=== PATIENT | female | born 1990 | race Caucasian/White ===

== ENCOUNTER 2023-06-15 09:00 | Emergency (ER) | payer BC, SELFPAY ==
[2023-06-15 09:06] VITALS: BP 121/77
--- NOTE | 2023-06-15 09:40 | ED.GENMED ---
History of Present Illness
General
Chief Complaint: Problems
Source: patient
Exam Limitations: none
Time Seen by Provider: 06/15/23 09:39
Nursing documentation reviewed up to this point in time: agreed with
Travel History
Have you had any contact with someone who has COVID-19?: No
Do you have any symptoms of coronavirus? Fever > 100 degrees, chills, cough, shortness of breath, sore throat, loss of taste or smell, muscle aches, or headache?: No
History of Present Illness
History of Present Illness:
Patient is a 32-year-old female G1, P1/1 miscarriage presents to the ER for evaluation of vaginal bleeding. Patient reports she is approximately 6 weeks with estimated last menstrual period of May 02. She is due to see her CONSULTING INTERN for
the first appointment this Saturday. She started bleeding this morning. She reports she noticed blood dripping when she was urinating and when wiping, she does see small amount of clots/tissue. She has some mild lower abdominal cramping.
Review of Systems
Review of Systems
Allergies reviewed?: Yes
All Other Systems: ROS reviewed and negative except as documented in HPI and ROS
Constitutional: Reports no symptoms; Denies fever, fatigue or chills
Respiratory: Reports no symptoms
Cardiac: Reports no symptoms
ABD/GI: Reports abdominal pain (lower abd cramping ); Denies nausea or vomiting
: Reports other (vaginal bleeding/spotting with small clots )
Musculoskeletal: Reports no symptoms; Denies back pain
Skin: Reports no symptoms
Neurological: Reports no symptoms
Hematologic/Lymphatic: Reports no symptoms
Psychiatric: Reports no symptoms
Phy Exam
General Physical Exam
General Presentation: no apparent distress
General age: appears stated age
General Skin: warm and dry
General Habitus: normal
General Mental: alert
Gastrointestinal Exam
Gastrointestinal Exam: non tender and soft
Genitourinary Exam Female
Exam Female: other (Patient with small amount of brown discharge in vaginal vault no active bleeding; os visualized and closed in internal exam)
Musculoskeletal Exam
Musculoskeletal Exam: full ROM
Skin Exam
Skin Exam: normal color and warm/dry
Psychiatric Exam
Psychiatric Exam: normal mood/affect
Course
Orders/Labs/Results
Orders:
Orders
06/15/23 09:41
IV Insert/Care/Rem.- Treatment PRN
0.9% Sodium Chloride 1000 ml [Nss] 1,000 ml IV BOLUS
06/15/23 09:57
Blood Group&Type Urgent
Beta HCG Quantitative Urgent
Is this a screen?: No
Complete Blood Count/With Diff Urgent
Comprehensive Metabolic Panel Urgent
06/15/23 10:17
US W Transvaginal Urgent
Reason For Exam: bleeding
06/15/23 14:37
Methotrexate Sodium/Pf [Methotrexate] 50 mg Intramuscular Injection 0 ml IM ONCE
06/15/23 15:00
Methotrexate Sodium/Pf [Methotrexate] 41.5 mg Intramuscular Injection 0 ml IM ONCE
06/15/23 15:34
Vital Signs- Treatment ONCE
Frequency: Once
Abnormal Lab Results
06/15/23
09:57
WBC 3.7 L 10^3/uL
(4.8-10.8)
MPV 10.6 H fL
(7.4-10.4)
06/15/23 09:57
06/15/23 09:57
Vital Signs
Initial and Last Documented VS:
Initial Vital Signs
Temp Pulse Resp BP Pulse Ox
97.9 F 68 16 121/77 100
06/15/23 09:06 06/15/23 09:06 06/15/23 09:06 06/15/23 09:06 06/15/23 09:06
Last Documented Vital Signs
Temp Pulse Resp BP Pulse Ox
99 F 74 16 116/77 99
06/15/23 15:46 06/15/23 15:46 06/15/23 15:46 06/15/23 15:46 06/15/23 15:46
Information
Weeks gestation: N/A
Location: N/A
MDM/Problems Addressed
Differential Diagnosis Includes:
not limited to: threatened AB /ectopic
MDM/Problems Addressed:
Patient 32-year-old female approximate 6 weeks complaining of vaginal bleeding, cramping. Patient presents awake alert no acute distress stable vitals. Patient does have history of 1 miscarriage. Patient's beta-hCG is 3549.70. She is
O+. Patient went for ultrasound awaiting results.
1320: Ultrasound shows that a gestational sac is not identified questionable too early to visualize sac repeat imaging could be performed in 1 week as per radiology. Patient has a single cyst and complex or hemorrhagic cyst in the right ovary.
On exam there is no active vaginal bleeding small mount of brown discharge in vaginal vault. Os is closed. Cervical os is mildly red I did review with patient to follow-up with COAGULATING DRYING SUPERVISOR regarding this. I did however discuss with COAGULATING DRYING SUPERVISOR DR Meyer who
will see pt. concern for ectopic with beta of 3549 and no sac visualized on US .
Patient was given by harbormaster and given outpatient prescriptions for hCG lab slips all instructions regarding methotrexate were reviewed by Dr. Meyer.
Patient is in no acute distress received methotrexate here has no complaints. discussed to return if any worsening of symptoms
*Radiology
Radiology exam reviewed: radiology read reviewed
*Pulse Oximetry
Patient hypoxic: no
*Critical Care Note
Total Time (30-74mins, 75-104mins- exclusive of procedures): Not Applicable
ED Attending Note
-
Portions of this chart may have been created with voice recognition software.� Occasional wrong word or��sound alike� substitutions may have occurred due to the inherent limitations of voice recognition software.
Discharge Plan
Departure
Patient Disposition: Home (Routine Discharge)
Date of Disposition: 06/15/23
Time of Disposition: 15:34
Patient with high blood pressure during this ER visit?: No
Condition: Fair
Covid-19: Not Applicable
Discharge Problem:
Ectopic
Instructions: Ectopic (DC)
Prescriptions:
No Action
prenat.vits,yesenia,bcf-unxe-pddsd Tablet
1 tab PO DAILY
acetaminophen 325 mg Tablet
650 mg PO Q4HPRN PRN (Reason: mild pain) Qty: 0 0RF
sennosides-docusate sodium 8.6-50 mg Tablet
1 tab PO DAILYPRN PRN (Reason: constipation) Qty: 30 0RF
ibuprofen 600 mg Tablet
600 mg PO Q6HPRN PRN (Reason: moderate pain/cramps) Qty: 45 0RF
Referrals:
Farooq Davies MD [Family Provider] -
Activity Restrictions/Additional Instructions:
As discussed you were given methotrexate for ectopic here in the ER. You were given lab slips for repeat blood work that needs to be done next week. Return to the ER for any worsening of symptoms of increasing pain or any further
concerns.
Interventions
Interventions:
*Risk Screen - Suicide Last Done: 06/15/23 09:57
*General Assessment Last Done: 06/15/23 09:57
*Neglect/Abuse Screening Last Done: 06/15/23 09:57
ED- Fall Risk Assessment Last Done: 06/15/23 15:13
*ED COVID-19 Vaccine History Last Done: 06/15/23 09:06
*Nursing Disposition Last Done: 06/15/23 15:56
ED-Female Genitourinary Assessment Last Done: 06/15/23 09:57
Discharge Date and Time
Discharge Date/Time: 06/15/23 15:56
[2023-06-15 09:57] VITALS: BMI 24.7
[2023-06-15] MEDS: NSS 1000 IV (09:59)
[2023-06-15 10:14] LABS: % Basophils 0.5 % (0-2); % Eosinophils 0.8 % (0-6); % Lymphocytes 48.7 % (20.5-51.1); % Monocytes 6.4 % (1.7-9.3); % Neutrophils 43.6 % (42.2-75.2); Absolute Lymphocytes 1.8 10^3/uL (1.2-3.4); Absolute Monocytes 0.2 10^3/uL (0.1-0.6); Absolute Neutrophils 1.6 10^3/uL (1.4-6.5); Hematocrit 38.3 % (37.0-47.0); Hemoglobin 12.7 g/dL (12.0-16.0); Mean Corp Hgb Conc. 33.2 g/dL (33.0-37.0); Mean Corpuscular Volume 84.5 fL (81.0-99.0); Mean Platelet Volume 10.6 fL (7.4-10.4); Nucleated Red Blood Cells % 0 %; Platelet Count 243 10^3/uL (130-400); Red Blood Cell Count 4.53 10^6/uL (4.20-5.40); Red Cell Dist. Width 13.3 % (11.5-14.5); White Blood Cell Count 3.7 10^3/uL (4.8-10.8)
[2023-06-15 10:27] LABS: ALT (SGPT) 12 U/L (0-35); AST (SGOT) 18 U/L (14-36); Albumin 4.4 g/dl (3.5-5.0); Alkaline Phosphatase 49 U/L (38-126); Blood Urea Nitrogen 16 mg/dl (7-17); Calcium 9.6 mg/dl (8.4-10.2); Carbon Dioxide 25 mmol/L (22-30); Chloride 105 mmol/L (98-107); Estimated Creatinine Clearance 114 ml/min; Glucose 90 mg/dl (70-99); Sodium 140 mmol/L (135-145); Total Bilirubin 0.5 mg/dl (0.2-1.3); eGFR > 60.00
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
[2023-06-15] MEDS: METHOTREXATE 2 MG IM (15:24)
[2023-06-15] MEDS: METHOTREXATE 1.65999999999999992 MG IM (15:27)
[2023-06-15 15:46] VITALS: BP 116/77
== END 2023-06-15 15:56 | disposition home or self-care (01) ==
LOC: EMR 09:00
PROVIDERS: Nurse Practitioner; EMERGENCY PHYSICIAN Emergency Medicine; FAMILY PHYSICIAN Internal Medicine
DX: O00.90 Unspecified ectopic pregnancy without intrauterine pregnancy (principal); Z3A.01 Less than 8 weeks gestation of pregnancy
CPT/HCPCS: 99284; 96374; 96376; 96361; 76801; 76817; 80053; 84702; 85025; 86900; 86901; J9260

== ENCOUNTER → 2023-06-19 08:43 | Outpatient (REF) | payer BC, SELFPAY | LOC: REG 08:43 | PROVIDERS: ATTENDING PHYSICIAN Obstetrics & Gynecology | DX: O00.90 Unspecified ectopic pregnancy without intrauterine pregnancy (principal) | CPT/HCPCS: 36415; 84702 ==

== ENCOUNTER → 2023-06-22 09:34 | Outpatient (REF) | payer BC, SELFPAY | LOC: REG 09:34 | PROVIDERS: ATTENDING PHYSICIAN Obstetrics & Gynecology | DX: O00.90 Unspecified ectopic pregnancy without intrauterine pregnancy (principal) | CPT/HCPCS: 36415; 84702 ==

== ENCOUNTER → 2023-06-28 08:42 | Outpatient (REF) | payer BC, SELFPAY | LOC: REG 08:42 | PROVIDERS: ATTENDING PHYSICIAN Obstetrics & Gynecology; FAMILY PHYSICIAN Internal Medicine | DX: O00.90 Unspecified ectopic pregnancy without intrauterine pregnancy (principal) | CPT/HCPCS: 36415; 84702 ==

== ENCOUNTER → 2023-07-08 15:46 | Outpatient (REF) | payer BC, SELFPAY ==
[2023-07-08 16:32] LABS: Beta HCG Quantitative 479.41 mIU/ml
== END ==
LOC: REG 15:46
PROVIDERS: ATTENDING PHYSICIAN Obstetrics & Gynecology; FAMILY PHYSICIAN Internal Medicine
DX: O00.90 Unspecified ectopic pregnancy without intrauterine pregnancy (principal)
CPT/HCPCS: 84702

== ENCOUNTER → 2023-07-15 12:39 | Outpatient (REF) | payer BC, SELFPAY ==
[2023-07-15 13:35] LABS: Beta HCG Quantitative 183.92 mIU/ml
== END ==
LOC: REG 12:39
PROVIDERS: ATTENDING PHYSICIAN Obstetrics & Gynecology; FAMILY PHYSICIAN Internal Medicine
DX: Z87.59 Personal history of other complications of pregnancy, childbirth and the puerperium (principal); O00.80 Other ectopic pregnancy without intrauterine pregnancy
CPT/HCPCS: 36415; 84702

== ENCOUNTER → 2023-07-26 08:42 | Outpatient (REF) | payer BC, SELFPAY | LOC: REG 08:42 | PROVIDERS: ATTENDING PHYSICIAN Obstetrics & Gynecology; FAMILY PHYSICIAN Internal Medicine | DX: Z87.59 Personal history of other complications of pregnancy, childbirth and the puerperium (principal) | CPT/HCPCS: 36415; 84702 ==

== ENCOUNTER → 2023-08-08 15:54 | Outpatient (REF) | payer BC, SELFPAY ==
[2023-08-08 17:06] LABS: Beta HCG Quantitative < 2.39 mIU/ml
== END ==
LOC: REG 15:54
PROVIDERS: ATTENDING PHYSICIAN Obstetrics & Gynecology; FAMILY PHYSICIAN Internal Medicine
DX: Z87.59 Personal history of other complications of pregnancy, childbirth and the puerperium (principal); O00.80 Other ectopic pregnancy without intrauterine pregnancy
CPT/HCPCS: 36415; 84702

== ENCOUNTER → 2023-08-28 13:02 | Outpatient (REF) | payer BC, SELFPAY | LOC: RAD 13:02 | PROVIDERS: ATTENDING PHYSICIAN Obstetrics & Gynecology; FAMILY PHYSICIAN Family Medicine | DX: Z87.59 Personal history of other complications of pregnancy, childbirth and the puerperium (principal) | CPT/HCPCS: 58340; 74740 ==

== ENCOUNTER → 2024-06-01 09:41 | Outpatient (REF) | payer BC, SELFPAY | LOC: PNTC 09:41 | PROVIDERS: ATTENDING PHYSICIAN Obstetrics & Gynecology | DX: O36.8130 Decreased fetal movements, third trimester, not applicable or unspecified (principal) | CPT/HCPCS: 59025 ==

== ENCOUNTER 2024-06-08 23:22 | Inpatient (IN) | payer BC, SELFPAY ==
[2024-06-08 23:24] VITALS: BMI 29.8
[2024-06-08] MEDS: PENICILLIN 110 UNITS IV (23:57)
[2024-06-08] MEDS: LR 1000 IV (23:57)
[2024-06-09 00:09] LABS: % Basophils 0.2 % (0-2); % Eosinophils 0.7 % (0-6); % Immature Granulocytes 0.8 % (0-0.5); % Lymphocytes 27.3 % (20.5-51.1); % Monocytes 7.2 % (1.7-9.3); % Neutrophils 63.8 % (42.2-75.2); Absolute Eosinophils 0.1 10^3/uL (0-0.7); Absolute Immature Granulocytes 0.1 10^3/uL (0-0.05); Absolute Lymphocytes 2.5 10^3/uL (1.2-3.4); Absolute Monocytes 0.7 10^3/uL (0.1-0.6); Absolute Neutrophils 5.9 10^3/uL (1.4-6.5); Hematocrit 34.3 % (37.0-47.0); Hemoglobin 11.5 g/dL (12.0-16.0); Mean Corp Hgb Conc. 33.5 g/dL (33.0-37.0); Mean Corpuscular Hgb 27.8 pg (27.0-31.0); Mean Corpuscular Volume 83.1 fL (81.0-99.0); Mean Platelet Volume 11.2 fL (7.4-10.4); Nucleated Red Blood Cells % 0 %; Platelet Count 247 10^3/uL (130-400); Red Blood Cell Count 4.13 10^6/uL (4.20-5.40); Red Cell Dist. Width 13.5 % (11.5-14.5); White Blood Cell Count 9.2 10^3/uL (4.8-10.8)
[2024-06-09 00:17] VITALS: BP 125/84
[2024-06-09] MEDS: FENTANYL/BUPIVACAINE 100 EPIDURAL (00:57)
[2024-06-09] MEDS: SUBLIMAZE 100 MCG EPIDURAL (00:57)
[2024-06-09] MEDS: LR 1000 IV ×2 (01:43→03:57)
[2024-06-09] MEDS: PENICILLIN 55 UNITS IV (03:57)
[2024-06-09] MEDS: PRENATAL PLUS PO (07:53)
[2024-06-09] MEDS: MOTRIN 600 MG PO ×2 (07:53→16:37)
[2024-06-09] MEDS: TYLENOL 650 MG PO ×2 (07:53→16:38)
[2024-06-09] MEDS: LEXAPRO PO (09:20)
[2024-06-09] MEDS: DILAUDID 2 MG PO (20:07)
[2024-06-10] MEDS: MOTRIN 600 MG PO (00:16)
[2024-06-10 04:48] LABS: Hematocrit 29.2 % (37.0-47.0); Hemoglobin 9.7 g/dL (12.0-16.0)
[2024-06-10] MEDS: PRENATAL PLUS 1 TABLET PO (08:04)
[2024-06-10] MEDS: LEXAPRO 10 MG PO (08:04)
[2024-06-10] MEDS: FEOSOL 325 MG PO (11:40)
== END 2024-06-10 12:44 | disposition home or self-care (01) | DRG 807 ==
LOC: LDRP 23:22
PROVIDERS: Obstetrics & Gynecology; ADMITTING PHYSICIAN Obstetrics & Gynecology
PROC: 0HQ9XZZ Repair Perineum Skin, External Approach (ICD-10-PCS; 2024-06-09)
PROC: 10E0XZZ Delivery of Products of Conception, External Approach (ICD-10-PCS; 2024-06-09)
DX: O99.824 Streptococcus B carrier state complicating childbirth (principal); Z37.0 Single live birth; O99.344 Other mental disorders complicating childbirth; F41.9 Anxiety disorder, unspecified; O70.0 First degree perineal laceration during delivery; Z3A.38 38 weeks gestation of pregnancy
CPT/HCPCS: 85014; 85018; 85025; 86780; 86850; 86900; 86901